=== PATIENT | female | born 1965 | race African-American/Black ===

== ENCOUNTER 2018-08-31 13:01 | Emergency (ER) | payer MEDICARE ==
[~2018-08-31] VITALS: Ht 162.6 cm; Wt 100.0 kg
[2018-08-31 13:09] VITALS: Ht 162.6 cm; Wt 100.0 kg
[2018-08-31] MEDS ORDERED: TRADJENTA5 MG PO (13:12)
[2018-08-31] MEDS ORDERED: GLUCOPHAGE1000 MG PO (13:12)
[2018-08-31] MEDS ORDERED: GLIPIZIDE10 MG PO (13:12)
[2018-08-31] MEDS ORDERED: LEVEMIR FL100 UNIT/1 SC (13:13)
[2018-08-31] MEDS ORDERED: TRULICITY0.75 MG/0. SC (13:13)
[2018-08-31] MEDS ORDERED: BENICAR20 MG PO (13:13)
[2018-08-31] MEDS ORDERED: LASIX20 MG PO (13:14)
[2018-08-31] MEDS ORDERED: ALDACTONE50 MG PO (13:14)
[2018-08-31] MEDS ORDERED: BENTYL10 MG PO (13:14)
[2018-08-31] MEDS ORDERED: SYNTHROID100 MCG PO (13:14)
[2018-08-31] MEDS ORDERED: SINGULAIR10 MG PO (13:15)
[2018-08-31] MEDS ORDERED: XANAX2 MG PO (13:15)
[2018-08-31] MEDS ORDERED: VOLTAREN75 MG PO (13:15)
[2018-08-31] MEDS ORDERED: SEROQUEL25 MG PO (13:15)
[2018-08-31] MEDS ORDERED: FLUTICASONE PRO16 GM NASAL (13:16)
[2018-08-31] MEDS ORDERED: BISOPROLOL-HCTZ1 TA5 PO (13:16)
[2018-08-31] MEDS ORDERED: ISOSORBIDE MONO60 M1 PO (13:16)
[2018-08-31] MEDS ORDERED: CYMBALTA60 MG PO (13:16)
[2018-08-31] MEDS ORDERED: NITROQUICK0.4 MG SL (13:16)
[2018-08-31] MEDS ORDERED: MULTI-DAY VITAM1 TAB PO (13:17)
[2018-08-31] MEDS ORDERED: MAG-OX 400 MG400 MG PO (13:18)
[2018-08-31] MEDS ORDERED: FOLATE0.4 MG PO (13:18)
[2018-08-31] MEDS ORDERED: VITAMIN D5000 UNIT PO (13:18)
[2018-08-31 13:34] LABS: APPEARANCE CLEAR (CLEAR); BILIRUBIN NEGATIVE (NEGATIVE); COLOR STRAW (YELLOW); GLUCOSE NEGATIVE (NEGATIVE); KETONE NEGATIVE (NEGATIVE); NITRITE NEGATIVE (NEGATIVE); PROTEIN NEGATIVE (NEGATIVE); UROBILINOGEN NORMAL (NORMAL)
[2018-08-31] MEDS ORDERED: ULTRAM50 MG PO (15:16)
[2018-08-31] MEDS ORDERED: ROBAXIN500 MG PO (15:16)
[2018-08-31 15:45] VITALS: BP 120/81
== END 2018-08-31 15:45 | disposition home or self-care (01) ==
LOC: D.ER 13:01
PROVIDERS: Emergency Medicine
DX: M54.16 Radiculopathy, lumbar region (principal)